=== PATIENT | female | born 1985 | race Two or more races ===

== ENCOUNTER → 2020-04-29 08:21 | Outpatient (BNVA) | payer BC, MEDICAID, SELFPAY | PROVIDERS: PCP Internal Medicine; Visit Provider Physician Assistant | DX: Z76.89 Persons encountering health services in other specified circumstances (principal) ==

== ENCOUNTER 2020-05-13 10:23 | Outpatient (REF) | payer BC, MEDICAID, SELFPAY ==
--- NOTE | 2020-05-13 11:37 | ECG_ITS ---
Test Reason : MORBID OBESITY Blood Pressure : / mmHG Vent. Rate : 069 BPM Atrial Rate : 069 BPM P-R Int : 134 ms QRS Dur : 082 ms QT Int : 386 ms P-R-T Axes : 009 051 026 degrees QTc Int : 413 ms Normal sinus rhythm Normal ECG No previous ECGs available Referred By: Kasandra Aguilar Electronically Signed By:JAZMÍN MURCIA MD
--- NOTE | 2020-05-13 11:46 | XR_ITS ---
EXAMINATION: XR CHEST CLINICAL INFORMATION: Morbid obesity COMPARISON: None TECHNIQUE: 2 views of the chest were obtained. FINDINGS: The cardiac silhouette does not appear enlarged. Mediastinal contours are unremarkable. The lung volumes are low. There are are increased perihilar lung markings on the PA view. This is not appreciated on the lateral view and may be due to low lung volumes. The lungs are otherwise clear. There is no pleural effusion or pneumothorax. Bony structures are unremarkable. XR/XR chest 2V IMPRESSION: Low lung volumes. Increased perihilar markings, question due to low lung volumes.
[2020-05-13 13:05] LABS: MANUAL DIFF FLAG NO
[2020-05-13 13:34] LABS: Basophils Percent Auto 0.5 % (0-2); Eosinophils Absolute Auto 0.2 X10*3/uL (0.0-0.4); Eosinophils Percent Auto 2.6 % (0-4); Hematocrit 43.1 % (37-47); Hemoglobin 14.4 g/dl (12.0-16.0); Imm Gran Abs Auto 0.02 X10*3/uL (0.00-0.03); Imm Gran Pct Auto 0.3 % (0.0-0.4); Lymphocytes Absolute Auto 1.5 X10*3/uL (1.2-4.9); Lymphocytes Percent Auto 26.2 % (20-40); Mean Corpuscular HGB Conc 33.4 g/dl (31.0-35.0); Mean Corpuscular Hemoglobin 29.6 pg (27.0-33.0); Mean Corpuscular Volume 88.5 fL (80-98); Mean Platelet Volume 11.1 fL (9.4-12.3); Monocytes Absolute Auto 0.3 X10*3/uL (0.1-1.2); Monocytes Percent Auto 4.7 % (2-11); Neutrophils Absolute Auto 3.8 X10*3/uL (2.0-8.3); Neutrophils Percent Auto 65.7 % (45-73); Platelet Count 298 X10*3/uL (160-400); Red Blood Count 4.87 X10*6/uL (4.20-5.50); Red Cell Distribution Width 12.5 % (11.0-16.0); White Blood Count 5.7 X10*3/uL (4.8-10.8)
[2020-05-13 13:53] LABS: Cholesterol 233 mg/dL; HDL Cholesterol 50 mg/dL; Iron 75 mcg/dL (30-160); LDL Cholesterol Calculated 162 mg/dl; Percent Iron Saturation 21 % (15-50); Total Iron Binding Capacity 358 mcg/dL (228-428); Triglycerides 106 mg/dL; Unsaturated Iron Binding 283 ug/dL
[2020-05-13 13:54] LABS: Folate 8.8 ng/mL (> or = 4.0); Vitamin B12 692 pg/mL (200-900)
[2020-05-13 14:01] LABS: Estimated Average Glucose 111 mg/dL; Hemoglobin A1c % 5.5 %
[2020-05-13 14:16] LABS: Ferritin 45 ng/mL (10-122); TSH reflex Free T4 0.97 mIU/mL (0.32-4.0); Vitamin D 25-OH Total 13.8 ng/mL (>30)
[2020-05-14 10:31] LABS: Insulin Level Total 9.5 uIU/mL
[2020-05-15 11:26] LABS: Calcium (PTHI) 9.5 mg/dL (8.6-10.2); PTHI 76 pg/mL (14-64)
[2020-05-15 14:17] LABS: H Pylori Breath Test NOT DETECTED (NOT DETECTED)
[2020-05-16 15:01] LABS: Zinc 77 mcg/dL (60-130)
[2020-05-19 12:22] LABS: Vitamin B1 7 nmol/L (8-30)
[2020-05-20 18:16] LABS: Vitamin A 40 mcg/dL (38-98)
== END 2020-05-13 10:24 | disposition home or self-care (01) ==
LOC: HO.LAB 10:23
PROVIDERS: Absent Provider Physician Assistant; PCP Internal Medicine; Referring Provider Internal Medicine; Visit Provider Physician Assistant
DX: E66.01 Morbid (severe) obesity due to excess calories (principal); K21.9 Gastro-esophageal reflux disease without esophagitis; Z68.35 Body mass index [BMI] 35.0-35.9, adult; M32.9 Systemic lupus erythematosus, unspecified; Z98.84 Bariatric surgery status
CPT/HCPCS: 36415; 71046; 80061; 82306; 82607; 82728; 82746; 83013; 83036; 83525; 83540; 83970; 84425; 84443; 84590; 84630; 85025; 86140; 93005

== ENCOUNTER → 2020-05-27 14:19 | Outpatient (BNVA) | payer BC, MEDICAID, SELFPAY | PROVIDERS: PCP Internal Medicine; Referring Provider Internal Medicine; Visit Provider Physician Assistant | DX: Z76.89 Persons encountering health services in other specified circumstances (principal) ==

== ENCOUNTER → 2020-06-16 10:55 | Outpatient (BNVA) | payer BC, MEDICAID, SELFPAY | PROVIDERS: PCP Internal Medicine; Referring Provider Internal Medicine; Visit Provider Surgery | DX: Z76.89 Persons encountering health services in other specified circumstances (principal) ==

== ENCOUNTER → 2020-06-29 08:50 | Outpatient (BNVA) | payer BC, MEDICAID, SELFPAY | PROVIDERS: PCP Internal Medicine; Visit Provider Dietitian, Registered | DX: Z76.89 Persons encountering health services in other specified circumstances (principal) ==

== ENCOUNTER → 2020-10-07 08:07 | Outpatient (BNVA) | payer BC, SELFPAY | PROVIDERS: PCP Internal Medicine; Visit Provider Dietitian, Registered | DX: E66.01 Morbid (severe) obesity due to excess calories (principal); Z68.41 Body mass index [BMI] 40.0-44.9, adult | CPT/HCPCS: 97803 ==

== ENCOUNTER → 2020-10-19 11:30 | Outpatient (BNVA) | payer BC, MEDICAID, SELFPAY | PROVIDERS: PCP Internal Medicine; Visit Provider Physician Assistant ==

== ENCOUNTER → 2020-11-03 08:00 | Outpatient (BNVA) | payer BC, MEDICAID, SELFPAY | PROVIDERS: PCP Internal Medicine; Visit Provider Dietitian, Registered | DX: E66.9 Obesity, unspecified (principal); Z68.39 Body mass index [BMI] 39.0-39.9, adult | CPT/HCPCS: 97803 ==

== ENCOUNTER → 2020-11-10 09:36 | Outpatient (BNVA) | payer BC, MEDICAID, SELFPAY | PROVIDERS: PCP Internal Medicine; Visit Provider Surgery ==

== ENCOUNTER → 2020-12-02 10:59 | Outpatient (BNVA) | payer BC, MEDICAID, SELFPAY | PROVIDERS: PCP Internal Medicine; Visit Provider Surgery ==

== ENCOUNTER → 2021-01-13 08:14 | Outpatient (BNVA) | payer BC, MEDICAID, SELFPAY | PROVIDERS: PCP Internal Medicine; Visit Provider Physician Assistant ==

== ENCOUNTER → 2021-02-08 08:11 | Outpatient (BNVA) | payer BC, MEDICAID, SELFPAY | PROVIDERS: PCP Internal Medicine; Referring Provider Physician Assistant; Visit Provider Dietitian, Registered ==

== ENCOUNTER 2021-03-26 10:10 | Outpatient (REF) | payer BC, MEDICAID, SELFPAY ==
[2021-03-26 12:39] LABS: Alanine Aminotransferase 26 U/L (0-31); Albumin Level 4.4 g/dL (3.5-5.0); Alkaline Phosphatase 96 U/L (39-117); Anion Gap 11 (12-20); Aspartate Amino Transferase 31 U/L (5-31); Bilirubin Total 0.7 mg/dL (0.0-1.0); Blood Urea Nitrogen 4 mg/dL (9-16); C Reactive Protein 0.11 mg/dL (< or = 0.50); Calcium 9.5 mg/dL (8.4-10.2); Carbon Dioxide 25 mmol/L (22-29); Chloride 107 mmol/L (96-108); Estimated Glomerular Filt Rate > 60; Glucose Random 93 mg/dL (60-115); Potassium 4.3 mmol/L (3.3-5.1); Sodium 139 mmol/L (135-145); Total Protein 7.4 g/dL (6.5-8.0)
[2021-03-26 12:55] LABS: TSH reflex Free T4 1.46 uIU/mL (0.32-4.0)
[2021-03-26 12:56] LABS: Vitamin D 25-OH Total 23.7 ng/mL (>30)
[2021-03-30 12:21] LABS: Transglutaminase Ab IgG <1.0 U/mL; Transglutaminase IgA <1.0 U/mL
[2021-04-02 11:26] LABS: Vitamin B1 9 nmol/L (8-30)
== END 2021-03-26 10:11 | disposition home or self-care (01) ==
LOC: HO.LAB 10:10
PROVIDERS: Surgery; PCP Internal Medicine; Visit Provider Nurse Practitioner Family
DX: Z01.818 Encounter for other preprocedural examination (principal); E51.9 Thiamine deficiency, unspecified; R10.11 Right upper quadrant pain; K21.9 Gastro-esophageal reflux disease without esophagitis; K58.1 Irritable bowel syndrome with constipation; R14.0 Abdominal distension (gaseous); E55.9 Vitamin D deficiency, unspecified
CPT/HCPCS: 36415; 80053; 82306; 83516; 84425; 84443; 86140

== ENCOUNTER → 2021-05-05 07:42 | Outpatient (BNVA) | payer BC, MEDICAID, SELFPAY | PROVIDERS: PCP Internal Medicine; Visit Provider Nurse Practitioner Family ==

== ENCOUNTER 2021-07-06 08:13 | Outpatient (REF) | payer BC, MEDICAID, SELFPAY ==
--- NOTE | ~2021-07-06 | US_ITS ---
EXAMINATION: US ABDOMEN COMPLETE CLINICAL INFORMATION: Right upper quadrant pain. COMPARISON: None TECHNIQUE: Real-time imaging of the abdominal viscera. FINDINGS: PANCREAS: Normal. ABDOMINAL AORTA: The proximal, mid, and distal segments are normal in caliber. INFERIOR VENA CAVA: Visualized portions are normal. LIVER: Liver echotexture is slightly increased. There are 3 hypoechoic solid-appearing lesions in the liver measuring 1.4 x 1.1 x 1.1 cm in the left lobe and 2.6 x 2 x 2.2 cm and 2.8 x 2.6 x 2.7 cm in the right lobe. The liver contour is normal. There is no intrahepatic biliary duct dilatation seen. GALLBLADDER: Gallbladder is slightly contracted. No gallstones are seen. The gallbladder wall is normal appearing. COMMON BILE DUCT: Normal in caliber measuring 0.3 cm in diameter. RIGHT KIDNEY: Normal. No hydronephrosis. No renal calculi or focal parenchymal lesions. The kidney measures 10.9 cm in maximum dimension. LEFT KIDNEY: Normal. No hydronephrosis. No renal calculi or focal parenchymal lesions. The kidney measures 11.8 cm in maximum dimension. SPLEEN: Normal. The spleen measures 9.9 cm in maximum dimension. FREE FLUID: None. US/US abdomen complete IMPRESSION: Slightly echogenic liver. 3 hypoechoic liver lesions, largest measuring 2.8 x 2.6 x 2.7 cm in the right lobe of the liver. Comparison with old outside exams if available is recommended. Otherwise follow-up liver MRI with contrast would be recommended.
== END 2021-07-06 08:14 | disposition home or self-care (01) ==
LOC: HO.US 08:13
PROVIDERS: Visit Provider Nurse Practitioner Family
DX: R10.11 Right upper quadrant pain (principal)
CPT/HCPCS: 76700

== ENCOUNTER → 2021-09-10 13:22 | Outpatient (BNVA) | payer BC, MEDICAID, SELFPAY | PROVIDERS: PCP Internal Medicine; Visit Provider Nurse Practitioner Family | DX: Z13.89 Encounter for screening for other disorder (principal) ==

== ENCOUNTER 2021-12-06 11:45 | Outpatient (REF) | payer BC, MEDICAID, SELFPAY ==
[2021-12-06 12:57] LABS: TSH reflex Free T4 0.56 uIU/mL (0.32-4.0)
[2021-12-10 15:33] LABS: Vitamin D 25-OH, D2 <4 ng/mL; Vitamin D 25-OH, D3 31 ng/mL; Vitamin D 25-OH, Total 31 ng/mL (30-100)
== END 2021-12-06 11:46 | disposition home or self-care (01) ==
LOC: HO.LAB 11:45
PROVIDERS: PCP Internal Medicine; Visit Provider Nurse Practitioner Family
DX: Z12.11 Encounter for screening for malignant neoplasm of colon (principal); E55.9 Vitamin D deficiency, unspecified
CPT/HCPCS: 36415; 82306; 84443

== ENCOUNTER → 2022-04-26 13:40 | Outpatient (BNVA) | payer OTHER, SELFPAY | PROVIDERS: PCP Internal Medicine; Visit Provider Physician Assistant Medical | DX: Z13.89 Encounter for screening for other disorder (principal) | CPT/HCPCS: 99202 ==

== ENCOUNTER 2022-11-30 08:11 | Outpatient (REF) | payer OTHER, SELFPAY ==
[2022-11-30 09:28] LABS: Glucose Fasting 83 mg/dL (60-99)
[2022-11-30 10:13] LABS: Glucose 1 Hour 196 mg/dL
[2022-11-30 11:16] LABS: Glucose 2 Hour 176 mg/dL
[2022-11-30 12:15] LABS: Glucose 3 Hour 64 mg/dL
== END 2022-11-30 08:12 | disposition home or self-care (01) ==
LOC: HO.LAB 08:11
PROVIDERS: PCP Internal Medicine; Visit Provider Obstetrics & Gynecology
DX: O99.810 Abnormal glucose complicating pregnancy (principal)
CPT/HCPCS: 36415; 82951

== ENCOUNTER 2023-12-18 08:36 | Emergency (ER) | payer OTHER, SELFPAY ==
[2023-12-18 08:40] VITALS: BP 117/78; PULSE 94; RESP 18; TEMP 36.4; O2SAT 96; BMI 39.6
[2023-12-18] MEDS: Ondansetron ODT 4 MG TAB.RAPDIS TRANSLINGU (09:32)
--- NOTE | 2023-12-18 09:32 | ED.HEATRA ---
HPI - Head Injury General Chief complaint: Head Injury Stated complaint: Head inj 12/15 Time Seen by Provider: 12/18/23 09:19 Source: patient Mode of arrival: ambulatory Limitations: no limitations History of Present Illness HPI Narrative: [age] year your female with a past medical history of GERD presents to emergency department with complaints dizziness, headache, intermittent right eye blurriness, and nausea after head injury on Monday. She reports ceramic tile fell onto the right side of her head. She reports she initially felt fine without symptoms but over the last 24 hours symptoms have occurred. She also reports right-sided neck pain without stiffness, change in ROM, paresthesias, or weakness. Pertinent positives and negatives discussed in HPI Related Data Home Medications ?Medication ?Instructions ?Recorded ?Confirmed biotin 5 mg capsule 5 mg PO DAILY 10/19/20 01/13/21 drospirenone 3 mg-ethinyl 1 tab PO DAILY 05/05/21 estradiol 0.02 mg tablet (Rose Mary (28)) Previous Rx's ?Medication ?Instructions ?Recorded methylcellulose (laxative) 500 mg 500 mg PO DAILY #30 tabs 05/05/21 tablet (Citrucel) omeprazole 20 mg capsule,delayed 20 mg PO DAILY #90 caps 12/06/21 release polyethylene glycol 3350 17 gram 17 g PO DAILY #100 ea 12/06/21 oral powder packet (Miralax) sennosides 8.6 mg tablet (Archana-nathan) 17.2 mg (2 x 8.6 mg) PO BEDTIME 12/06/21 #180 tabs ondansetron 4 mg disintegrating 4 mg PO Q8H PRN nausea and 12/18/23 tablet vomiting #20 tabs Allergies Allergy/AdvReac Type Severity Reaction Status Date / Time No Known Allergies Allergy Verified 12/18/23 08:42 [No Known Allergies*] Review of Systems Review of Systems: Yes all other systems are reviewed and are negative [facility] Past Medical History Medical History (Updated 12/18/23 @ 09:30 by Carol Valenzuela NP) BMI 39.0-39.9,adult Right upper quadrant pain Vitamin B1 deficiency PCOS (polycystic ovarian syndrome) Body mass index (BMI) of 40.0-44.9 in adult Morbid obesity due to excess calories GERD (gastroesophageal reflux disease) Surgical History History of esophagogastroduodenoscopy (EGD) Hx of section Family History Family History Mother Hypertension Father No problems noted. Brother No problems noted. Brother No problems noted. Sister Diabetes Sister No problems noted. Son No problems noted. Social History Social History Alcohol intake: current Alcohol intake frequency: holidays/special occasions only Patient Tobacco Use Status: Never used Tobacco Advance Directives: No Advance Directives Information Provided: Yes Do you have a plan to hurt others: No Plan Physical Exam Vital Signs: Vital Signs: Last Vital Signs Temp 98.0 F 12/18/23 09:41 Pulse 86 12/18/23 09:41 Resp 18 12/18/23 09:41 BP 119/72 12/18/23 09:41 Pulse Ox 98 12/18/23 09:41 O2 Del Method Room Air 12/18/23 09:41 BMI result Body Mass Index 39.6 Nursing notes and vital signs reviewed. GENERAL APPEARANCE: A&0 x 4, generally well appearing, no acute distress HENMT: Normal to inspection, atraumatic, face symmetrical. Normal external ears, nose, and oropharynx clear. Normal TMs bilaterally EYE: PERRLA, EOM intact, structures appear normal NECK: Supple without stiffness or restricted ROM. HEART: Normal rate and regular rhythm, normal S1/S2, no M/R/G LUNGS: LS CTA, moving air well. Able to speak in complete sentences. No crackles, wheezes, or rhonchi auscultated BACK: No CVAT, no obvious deformity EXTREMITIES: Moving all extremities without difficulty. Normal capillary refill. NEUROLOGICAL: Alert and oriented, moving all 4 extremities with equal strength. CN not formally tested but appearing grossly intact. Observed to ambulate with normal gait. Cognition normal SKIN: Warm and dry without any lesions, rash, or visible sores Medications Administered Discontinued Medications Generic Name Dose Route Start Last Admin Trade Name Freq PRN Reason Stop Dose Admin Ondansetron HCl 4 mg 12/18/23 09:27 12/18/23 09:32 Ondansetron Odt 4 Mg Tab.Rapdis TRANSLINGU 12/18/23 09:28 4 mg ONCE ONE Administration Medical Decision Making Medical Decision Making MDM Narrative: Old records reviewed for previous imaging, lab studies, ECGs, and notes. Patient was assessed the emergency department with no acute distress, toxicity, or aberrancy is a neuro exam. [place] CT head and c-spine rules indicating low risk and suggesting CT scans are not necessary at this time. [place] sent to patient preferred pharmacy for further management of nausea. Patient educated to rest and decreased stimulation to allow for brain healing. Patient is safe for discharge at this time with plan for [id number] Tylenol and/or NSAID such as ibuprofen or naproxen for fever/discomfort with dosing as per packaging. HPI, PE, diagnostics, and plan discussed with patient and family with no unanswered questions at this time. Strict return precautions given to return to the emergency department with new, worsening, or concerning emergent symptoms. Recommended to follow-up with there primary care provider in 24-48 hours for further treatment and management. Differential Diagnosis Differential Diagnoses: The differential diagnosis associated with the presentation includes But not limited to intracranial injury or hemorrhage, fracture, dislocation, strain, sprain, spasm, contusion, TBI Tests considered The following testing was considered but not selected: CT head and C-spine Prescription Management I considered prescription management with: Pain Medication But based on exam, side effects, and high risk for addiction, narcotic pain medication was deemed necessary at this time Chronic Conditions Patient?s care impacted by: Other GERD, obesity Discharge Plan Discharge Clinical Impression: Concussion Patient Disposition: Home, Self-Care Instructions: Cervical Strain (ED), Concussion (ED) Prescriptions: New ondansetron 4 mg tablet,disintegrating 4 mg PO Q8H PRN (Reason: nausea and vomiting) Qty: 20 0RF No Action biotin 5 mg capsule 5 mg PO DAILY polyethylene glycol 3350 [Miralax] 17 gram powder in packet 17 g PO DAILY Qty: 100 3RF omeprazole 20 mg capsule,delayed release(DR/EC) 20 mg PO DAILY Qty: 90 2RF sennosides [Archana-nathan] 8.6 mg tablet 17.2 mg PO BEDTIME Qty: 180 3RF drospirenone-ethinyl estradiol [Rose Mary (28)] 3-0.02 mg tablet 1 tab PO DAILY Citrucel 500 mg tablet 500 mg PO DAILY Qty: 30 2RF Rx Instructions: take it with full glass of water Referrals: Treasure Erazo MD [Primary Care Provider] - Stand Alone Forms: Work/School Release Interventions: ED Discharge Assessment Last Done: 12/18/23 09:41 Discharge Date/Time: 12/18/23 09:42 Print Language: Luxembourgish
--- NOTE | 2023-12-18 09:35 | PC.NURSE ---
pt medicated per order
[2023-12-18 09:41] VITALS: BP 119/72; PULSE 86; RESP 18; TEMP 36.7; O2SAT 98
== END 2023-12-18 09:42 | disposition home or self-care (01) ==
PROVIDERS: Emergency Provider Emergency Medicine; PCP Internal Medicine
DX: S06.0X0A Concussion without loss of consciousness, initial encounter (principal); Y29.XXXA Contact with blunt object, undetermined intent, initial encounter; Y93.9 Activity, unspecified; Y92.9 Unspecified place or not applicable; Y99.8 Other external cause status
CPT/HCPCS: 99282; 99283